=== PATIENT | female | born 1935 | race Caucasian/White ===

== ENCOUNTER 2017-03-09 15:53 | Inpatient (IN) | payer MEDICARE, BC ==
[2017-03-09 19:42] VITALS: BMI 35.7
[2017-03-10] MEDS ORDERED: Alum-Mag Hydrox-Simethicone Susp (30 mL) PO PRN (10:26)
--- NOTE | 2017-03-10 11:08 | CP.PCM.HP ---
History of Present Illness - History of Present Illness History of Present Illness: This is an 81 year old female with a past medical hx of essential hypertension, hypercholesterolemia, osteoporosis, dementia, atrial fibrillation, off of anticoagulation other than aspirin and plavix due to history of recurrent falls , with recent concern for GI bleed however w/ negative colonoscopy. The patient is a resident of the [facility]. She has history of advanced dementia and there is limited history available from her. 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 The patient has no complaints upon admission and says that she feels well. Denies cp/sob/f/c/n/v/d. Present on Admission - Present on Admission Any Indicators Present on Admission: No Review of Systems - Review of Systems Review of Systems: A 12 point review of systems was conducted and found to be negative other than what was mentioned in the history of present illness. Past Patient History - Past Medical History & Family History Past Medical History?: Yes - Past Social History Smoking Status: Former Smoker Home Situation {Lives}: Shelter - CARDIAC Hx Cardiac Disorders: Yes (A FIB, CARDIAC ARRHYTHMIA) Hx Hypercholesterolemia: Yes Hx Hypertension: Yes - PULMONARY Hx Respiratory Disorders: No - NEUROLOGICAL Hx Dementia: Yes - HEENT Hx HEENT Problems: Yes - RENAL Hx Chronic Kidney Disease: No - ENDOCRINE/METABOLIC Hx Endocrine Disorders: No - HEMATOLOGICAL/ONCOLOGICAL Hx Anemia: Yes - INTEGUMENTARY Hx Dermatological Problems: No - MUSCULOSKELETAL/RHEUMATOLOGICAL Hx Arthritis: Yes - GASTROINTESTINAL Hx Gastrointestinal Disorders: Yes Other/Comment: GI blood - GENITOURINARY/GYNECOLOGICAL Hx Genitourinary Disorders: No - PSYCHIATRIC Hx Substance Use: No - SURGICAL HISTORY Hx Surgeries: Yes Hx Joint Replacement: Yes (right knee) - ANESTHESIA Hx Anesthesia: Yes Hx Anesthesia Reactions: No Meds Allergies/Adverse Reactions: Allergies Allergy/AdvReac Type Severity Reaction Status Date / Time No Known Allergies Allergy Verified 03/09/17 19:41 Physical Exam - Additional Findings Additional findings: Physical exam: Constitutional- cooperative, awake, alert Head- NCAT, PERRL Eye- PERRL, EOMI ENT- normal exam, MMM. Neck- normal inspection, supple, no JVD Respiratory- CTAB, no wheezes rales rhonchi Cardiovascular- RRR, +S1, +S2 no MRG GI/Abdominal- normal bowel sounds, soft, no mass, no hsm Skin- warm, dry Extremities Exam- normal capillary refill, normal inspection Neurological Exam- alert, awake, oriented x 2. Right eye medial upper visual field deficit. L eye lateral visual field deficit. No facial droop observed. 5/ 5 muscle strength x 4 extremities. Sensation to light touch intact to all 4 extremities. Gait exam not performed. Psych- normal mood, normal affect Assessment & Plan - Assessment and Plan (Free Text) Plan: 81 yo female admitted to acute rehab s/p right PICA CVA 1) Right PICA CVA - Admit to [facility] - Physiatry consultation w/ Dr. Strauss - Start PT/OT/ST - Continuie ASA/Plavix - Restart further low dose anticoagulation on 03/23/2016 if medically stable and has strict fall precautions as per Dr. Marquez. 2) Atrial fibrillation - Off of full anticoagulation due to recurrent falls - Cont ASA/Plavix - Lopressor 50 mg po q 12 hours for rate control - Was seen at [facility] for cardiology consultation w/ Dr. Kirby 3) Essential hypertension - Continue Lopressor - May need to add additional medications if uncontrolled 4) Hypercholesterolemia - Continue Lipitor 20 mg po HS 5) Hx UTI dx at [facility] - Continue Cipro 250 mg po q 12 hours - Cipro to be completed on 03/16/2017 6) Advanced dementia - Continue Aricept - Fall precautions 7) DVT prophylaxis - Plavix/ASA only as above - ANDRES hose/stockings Disposition: To be discharged back to the [facility] upon completion of her treatment.
--- NOTE | 2017-03-10 12:45 | CP.PCM.PN ---
Subjective - Date & Time of Evaluation Date of Evaluation: 03/10/17 Time of Evaluation: 11:30 - Subjective Subjective: no acute complaints at present, Objective - Vital Signs/Intake and Output Vital Signs (last 24 hours): Temp Pulse Resp BP Pulse Ox 97.2 F L 90 18 163/105 H 94 L 03/10/17 08:02 03/10/17 08:25 03/10/17 08:02 03/10/17 08:25 03/10/17 08:21 - Medications Medications: Current Medications Al Hydrox/Mg Hydrox/Simethicone (Maalox Plus 30 Ml) 30 ml PO Q6 PRN PRN Reason: Indigestion / Heartburn Atorvastatin Calcium (Lipitor) 20 mg PO [facility] Last Admin: 03/09/17 21:53 Dose: 20 mg Ciprofloxacin (Cipro) 250 mg PO Q12 [facility] PRN Reason: Protocol Last Admin: 03/10/17 08:25 Dose: 250 mg Clopidogrel Bisulfate (Plavix) 75 mg PO DAILY [facility] Last Admin: 03/10/17 08:27 Dose: 75 mg Docusate Sodium (Colace) 100 mg PO BID [facility] Last Admin: 03/10/17 08:24 Dose: 100 mg Donepezil HCl (Aricept) 5 mg PO [facility] Last Admin: 03/09/17 21:53 Dose: 5 mg Ferrous Sulfate (Feosol) 325 mg PO DAILY [facility] Last Admin: 03/10/17 08:26 Dose: 325 mg Heparin Sodium (Porcine) (Heparin) 5,000 units SC Q8 [facility] PRN Reason: Protocol Last Admin: 03/10/17 05:54 Dose: 5,000 units Metoprolol Tartrate (Lopressor) 50 mg PO Q12 [facility] Last Admin: 03/10/17 08:25 Dose: 50 mg - Head Exam Head Exam: ATRAUMATIC, NORMAL INSPECTION, NORMOCEPHALIC - Eye Exam Eye Exam: EOMI, Normal appearance, PERRL Pupil Exam: NORMAL ACCOMODATION - ENT Exam ENT Exam: Mucous Membranes Moist, Normal Exam - Neck Exam Neck Exam: Normal Inspection - Respiratory Exam Respiratory Exam: Clear to Ausculation Bilateral, NORMAL BREATHING PATTERN - Cardiovascular Exam Cardiovascular Exam: REGULAR RHYTHM - GI/Abdominal Exam GI & Abdominal Exam: Soft, Normal Bowel Sounds - Rectal Exam Rectal Exam: NORMAL INSPECTION - Exam External exam: NORMAL EXTERNAL EXAM - Extremities Exam Extremities Exam: Full ROM, Normal Capillary Refill, Normal Inspection - Back Exam Back Exam: NORMAL INSPECTION - Neurological Exam Neurological Exam: Alert, Awake Neuro motor strength exam: Left Upper Extremity: 3, Right Upper Extremity: 3, Left Lower Extremity: 3, Right Lower Extremity: 3 - Psychiatric Exam Psychiatric exam: Normal Affect, Normal Mood - Skin Skin Exam: Dry, Intact Assessment and Plan (1) Anemia Status: Acute (2) Atrial fibrillation Status: Acute (3) CVA (cerebral vascular accident) Assessment & Plan: plan for physical, occupational, rec therapy program Status: Acute (4) Colon polyps Status: Acute (5) Diverticulosis Status: Acute (6) Gastrointestinal hemorrhage Status: Acute (7) HTN (hypertension) Status: Acute (8) Hemianopsia Status: Acute
--- NOTE | 2017-03-10 12:46 | PCM.OPOC ---
Physiatry Overall Plan of Care - Overall Plan of Care Estimated Length of Stay in Weeks: 3 Rehab Impairment: Mobility, Gait, Cognition, Speech, Balance, Coordination Etiologic Diagnosis: Cerebrovascular Accident Rehab/Medical Prognosis: Fair - Anticipated Interventions Physical Therapy:: Yes Occupational Therapy:: Yes Speech Therapy:: Yes Recreational Therapy:: Yes - Therapy Goals Bed Mobility: Independent Ambulation: Supervision Functional Positional Changes:: Independent - Discharge Plan Identification of Barriers to Discharge: Home Situation Discharge Destination: Home
--- NOTE | 2017-03-10 12:49 | CP.PCM.CON ---
History of Present Illness - History of Present Illness History of Present Illness: 81 year old freindly female admitted to acute raheb with diagnosis of acute CVa, complaints of visual disturbances Review of Systems - EENT Eyes: Other Visual Disturbances - Neurological Neurological: Weakness Past Patient History - Past Medical History & Family History Past Medical History?: Yes - Past Social History Smoking Status: Former Smoker Home Situation {Lives}: Jail - CARDIAC Hx Cardiac Disorders: Yes (A FIB, CARDIAC ARRHYTHMIA) Hx Hypercholesterolemia: Yes Hx Hypertension: Yes - PULMONARY Hx Respiratory Disorders: No - NEUROLOGICAL Hx Dementia: Yes - HEENT Hx HEENT Problems: Yes - RENAL Hx Chronic Kidney Disease: No - ENDOCRINE/METABOLIC Hx Endocrine Disorders: No - HEMATOLOGICAL/ONCOLOGICAL Hx Anemia: Yes - INTEGUMENTARY Hx Dermatological Problems: No - MUSCULOSKELETAL/RHEUMATOLOGICAL Hx Arthritis: Yes - GASTROINTESTINAL Hx Gastrointestinal Disorders: Yes Other/Comment: GI blood - GENITOURINARY/GYNECOLOGICAL Hx Genitourinary Disorders: No - PSYCHIATRIC Hx Substance Use: No - SURGICAL HISTORY Hx Surgeries: Yes Hx Joint Replacement: Yes (right knee) - ANESTHESIA Hx Anesthesia: Yes Hx Anesthesia Reactions: No Meds Allergies/Adverse Reactions: Allergies Allergy/AdvReac Type Severity Reaction Status Date / Time No Known Allergies Allergy Verified 03/09/17 19:41 - Medications Medications: Current Medications Al Hydrox/Mg Hydrox/Simethicone (Maalox Plus 30 Ml) 30 ml PO Q6 PRN PRN Reason: Indigestion / Heartburn Atorvastatin Calcium (Lipitor) 20 mg PO HS [facility] Last Admin: 03/09/17 21:53 Dose: 20 mg Ciprofloxacin (Cipro) 250 mg PO Q12 [facility] PRN Reason: Protocol Last Admin: 03/10/17 08:25 Dose: 250 mg Clopidogrel Bisulfate (Plavix) 75 mg PO DAILY [facility] Last Admin: 03/10/17 08:27 Dose: 75 mg Docusate Sodium (Colace) 100 mg PO BID [facility] Last Admin: 03/10/17 08:24 Dose: 100 mg Donepezil HCl (Aricept) 5 mg PO HS [facility] Last Admin: 03/09/17 21:53 Dose: 5 mg Ferrous Sulfate (Feosol) 325 mg PO DAILY [facility] Last Admin: 03/10/17 08:26 Dose: 325 mg Heparin Sodium (Porcine) (Heparin) 5,000 units SC Q8 [facility] PRN Reason: Protocol Last Admin: 03/10/17 05:54 Dose: 5,000 units Metoprolol Tartrate (Lopressor) 50 mg PO Q12 [facility] Last Admin: 03/10/17 08:25 Dose: 50 mg Physical Exam - Head Exam Head Exam: ATRAUMATIC, NORMAL INSPECTION, NORMOCEPHALIC - Eye Exam Eye Exam: EOMI, Normal appearance, PERRL Pupil Exam: NORMAL ACCOMODATION - ENT Exam ENT Exam: Mucous Membranes Moist, Normal Exam - Neck Exam Neck exam: Positive for: Normal Inspection - Respiratory Exam Respiratory Exam: Clear to Auscultation Bilateral, NORMAL BREATHING PATTERN - Cardiovascular Exam Cardiovascular Exam: REGULAR RHYTHM - GI/Abdominal Exam GI & Abdominal Exam: Normal Bowel Sounds - Rectal Exam Rectal Exam: NORMAL INSPECTION - Exam External exam: NORMAL EXTERNAL EXAM - Extremities Exam Extremities exam: Positive for: normal inspection Additional comments: muscle strength 4/5 ,sensation grossly intact problems with balance and coordination - Back Exam Back exam: NORMAL INSPECTION - Neurological Exam Neurological exam: Alert, Reflexes Normal - Psychiatric Exam Psychiatric exam: Normal Mood Additional comments: confused - Skin Skin Exam: Dry, Intact Results - Vital Signs Recent Vital Signs: Last Vital Signs Temp 97.2 F L 03/10/17 08:02 Pulse 90 03/10/17 08:25 Resp 18 03/10/17 08:02 BP 163/105 H 03/10/17 08:25 Pulse Ox 94 L 03/10/17 08:21 Assessment & Plan (1) Anemia Status: Acute (2) Atrial fibrillation Status: Acute (3) CVA (cerebral vascular accident) Assessment and Plan: plan for physical, occuaptional, rec and speech therapy program covering for Dr collins Status: Acute (4) Colon polyps Status: Acute (5) Diverticulosis Status: Acute (6) Gastrointestinal hemorrhage Status: Acute (7) HTN (hypertension) Status: Acute (8) Hemianopsia Status: Acute
[2017-03-12] MEDS: Pantoprazole 40 mg EC Tab PO SCH (08:51)
--- NOTE | 2017-03-12 10:25 | CP.PCM.PN ---
Subjective - Date & Time of Evaluation Date of Evaluation: 03/12/17 Time of Evaluation: 10:25 - Subjective Subjective: patient seen examined bedside, doing well no complaints, tolerating PT well HD stable NAD no cp sob calf tenderness Objective - Vital Signs/Intake and Output Vital Signs (last 24 hours): Temp Pulse Resp BP Pulse Ox 98.2 F 95 H 21 169/97 H 95 03/12/17 08:36 03/12/17 08:51 03/12/17 08:36 03/12/17 08:51 03/12/17 08:36 Head- NCAT, PERRL Eye- PERRL, normal accommodation ENT- normal exam, MMM. Neck- normal inspection, supple, no JVD Respiratory- CTAB, no wheezes rales rhonchi Cardiovascular- RRR, +S1, +S2 no MRG GI/Abdominal- normal bowel sounds, soft Skin- warm, dry Extremities Exam- normal capillary refill, normal inspection Neurological Exam- alert, oriented Psych- normal mood, normal affect - Medications Medications: Current Medications Al Hydrox/Mg Hydrox/Simethicone (Maalox Plus 30 Ml) 30 ml PO Q6 PRN PRN Reason: Indigestion / Heartburn Atorvastatin Calcium (Lipitor) 20 mg PO HS [facility] Last Admin: 03/11/17 21:28 Dose: 20 mg Ciprofloxacin (Cipro) 250 mg PO Q12 [facility] PRN Reason: Protocol Last Admin: 03/12/17 08:49 Dose: 250 mg Clopidogrel Bisulfate (Plavix) 75 mg PO DAILY [facility] Last Admin: 03/12/17 08:50 Dose: 75 mg Docusate Sodium (Colace) 100 mg PO BID [facility] Last Admin: 03/12/17 08:50 Dose: 100 mg Donepezil HCl (Aricept) 5 mg PO HS [facility] Last Admin: 03/11/17 21:28 Dose: 5 mg Ferrous Sulfate (Feosol) 325 mg PO DAILY [facility] Last Admin: 03/12/17 08:50 Dose: 325 mg Heparin Sodium (Porcine) (Heparin) 5,000 units SC Q8 [facility] PRN Reason: Protocol Last Admin: 03/12/17 05:26 Dose: 5,000 units Metoprolol Tartrate (Lopressor) 50 mg PO Q12 [facility] Last Admin: 03/12/17 08:51 Dose: 50 mg Pantoprazole Sodium (Protonix Ec Tab) 40 mg PO DAILY [facility] Last Admin: 03/12/17 08:51 Dose: 40 mg Assessment and Plan - Assessment and Plan (Free Text) Plan: This is an 81 year old female with a past medical hx of essential hypertension, hypercholesterolemia, osteoporosis, dementia, atrial fibrillation, off of anticoagulation other than aspirin and plavix due to history of recurrent falls , with recent concern for GI bleed however w/ negative colonoscopy. The patient is a resident of the [facility]. She has history of advanced dementia and there is limited history available from her. 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 The patient has no complaints upon admission and says that she feels well. Denies cp/sob/f/c/n/v/d. 1) Right PICA CVA - Admit to [facility] - Physiatry consultation w/ Dr. Strauss - Start PT/OT/ST - Continuie ASA/Plavix - Restart further low dose anticoagulation on 03/23/2016 if medically stable and has strict fall precautions as per Dr. Marquez. 2) Atrial fibrillation - Off of full anticoagulation due to recurrent falls - Cont ASA/Plavix - Lopressor 50 mg po q 12 hours for rate control - Was seen at [facility] for cardiology consultation w/ Dr. Kirby 3) Essential hypertension - Continue Lopressor - May need to add additional medications if uncontrolled 4) Hypercholesterolemia - Continue Lipitor 20 mg po HS 5) Hx UTI dx at [facility] - Continue Cipro 250 mg po q 12 hours - Cipro to be completed on 03/16/2017 6) Advanced dementia - Continue Aricept - Fall precautions 7) DVT prophylaxis - Plavix/ASA only as above - ANDRES hose/stockings Disposition: To be discharged back to the [facility] upon completion of her treatment.
--- NOTE | 2017-03-12 12:35 | CP.PCM.PN ---
Subjective - Date & Time of Evaluation Date of Evaluation: 03/12/17 Time of Evaluation: 12:35 - Subjective Subjective: Ms. Carrero was seen and examined at the bedside. She is alert, oriented to person, but with some confusion to time (2019), and place (knows that she is in a hospital, but unaware of which one). She denies any headache, dizziness, lightheadedness, nausea, or vomiting. She is able to answer few questions with appropriately and follow simple commands. She is on telesitter for patient safety. Objective - Vital Signs/Intake and Output Vital Signs (last 24 hours): Temp Pulse Resp BP Pulse Ox 98.2 F 95 H 21 169/97 H 95 03/12/17 08:36 03/12/17 08:51 03/12/17 08:36 03/12/17 08:51 03/12/17 08:36 - Medications Medications: Current Medications Al Hydrox/Mg Hydrox/Simethicone (Maalox Plus 30 Ml) 30 ml PO Q6 PRN PRN Reason: Indigestion / Heartburn Atorvastatin Calcium (Lipitor) 20 mg PO HS [facility] Last Admin: 03/11/17 21:28 Dose: 20 mg Ciprofloxacin (Cipro) 250 mg PO Q12 [facility] PRN Reason: Protocol Last Admin: 03/12/17 08:49 Dose: 250 mg Clopidogrel Bisulfate (Plavix) 75 mg PO DAILY [facility] Last Admin: 03/12/17 08:50 Dose: 75 mg Docusate Sodium (Colace) 100 mg PO BID [facility] Last Admin: 03/12/17 08:50 Dose: 100 mg Donepezil HCl (Aricept) 5 mg PO HS [facility] Last Admin: 03/11/17 21:28 Dose: 5 mg Ferrous Sulfate (Feosol) 325 mg PO DAILY [facility] Last Admin: 03/12/17 08:50 Dose: 325 mg Heparin Sodium (Porcine) (Heparin) 5,000 units SC Q8 [facility] PRN Reason: Protocol Last Admin: 03/12/17 05:26 Dose: 5,000 units Metoprolol Tartrate (Lopressor) 50 mg PO Q12 [facility] Last Admin: 03/12/17 08:51 Dose: 50 mg Pantoprazole Sodium (Protonix Ec Tab) 40 mg PO DAILY [facility] Last Admin: 03/12/17 08:51 Dose: 40 mg - Constitutional Appears: No Acute Distress - Head Exam Head Exam: NORMAL INSPECTION - Neurological Exam Neurological Exam: Alert, Awake Neuro motor strength exam: Left Upper Extremity: 5, Right Upper Extremity: 5, Left Lower Extremity: 5, Right Lower Extremity: 5 Additional comments: alert, awake, oriented x 2. Right eye medial upper visual field deficit. L eye lateral visual field deficit. No facial droop observed. 07/07 muscle Assessment and Plan (1) CVA (cerebral vascular accident) Assessment & Plan: Case discussed with Dr. Christian, continue all current medical, physical, occupational, and speech therapies. There is no new recommendations from neurology. Status: Acute
[2017-03-13] MEDS: Pantoprazole 40 mg EC Tab PO SCH (08:10)
--- NOTE | 2017-03-13 08:50 | PSY.TMCNF ---
Nursing - Vital Signs Vital Signs (Last 8 hours): Vital Signs 03/13/17 03/13/17 07:13 08:09 Temperature 97 F L Pulse Rate 94 H 91 H Respiratory 20 Rate Blood Pressure 137/87 152/69 H - Precautions: Precautions: Fall Prevention - Medications/Other Issues Comment: (+) Poor Vision. - Repeat CT Scan done yesterday. - Consults Comment: Dr. Gómez, Dr. Christian - Toileting Toileting: Supervision - Bladder Management Bladder Pattern: Normal Voiding Method: Toilet, Bedpan Bladder Management: Supervision Frequency of Accidents: 0 - Bowel Management Bowel Pattern: Normal Bowel Management: Supervision Frequency of Accidents: 0 - Transfers Transfers: Supervision - ADL's ADL's: Minimal Assistance - Patient/Family Teaching Comments: Care post CVA and safety precautions - Goals/Time Frame Comments: Per multidisciplinary care plan and goals - Provider Provider: Kisha HERNANDEZN RN CRRN Physical Therapy - Bed Mobility Bed Mobility: Verbal Cues, Minimal Assistance - Transfers Wheelchair to Mat: Verbal Cues, Minimal Assistance Sit to Stand: Verbal Cues, Contact Guard, Minimal Assistance - Ambulation Level of Assistance: Verbal Cues, Minimal Assistance Distance (ft.): 100 Assistive Devices: Rolling Walker - Stair Negotiation Stairs: Level of Assistance: Minimal Assistance Number of Stairs: 3 Handrails: Bilateral Stairs: Assistive Devices: Left Handrail, Right Handrail - Standing Balance Static Stand: Contact Guard Assist Dynamic Stand: Minimal Assistance - Pain Pain (assessed during therapy session): 0 - Insight/Carryover Insight/Carryover: Fair - Patient/Family Education Comment: Patient benefits from consistent verbal cues for safety awareness and pt demos poor cognition. - Assessment/Plan Assessment: Patient is 81 yo female who presents to acute rehab at [facility] s/p acute CVA. Patient was residing in a long term setting and was modified I at baseline. 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 Pt benefits from consistent verbal cues for safety due to poor carryover. Cont OT services 5-6x/ week to return pt to her PLOF. - Goals Timeframe: 2 weeks Goals: Return to PLOF. Mod I with self care ,transfers and mobility in long term setting. - Provider Therapist: Rajwinder Buckley PT DPT License Number: [id number] Occupational Therapy - Arousal/Attention/Orientation Level of Consciousness: Awake, Alert, Forgetful, Confused Patient Orientation: Person Assessment Comment: Patient is pleasantly confused. She is oriented to her name and month but not place or year . - ADL/IADL Self Feeding: Set-up Help Grooming: Set-up Help Bathing-Upper Extremity: Supervision, Verbal Cues Bathing-Lower Extremity: Verbal Cues, Set-up Help, Contact Guard Dressing-Upper Extremity: Supervision Dressing-Lower Extremity: Verbal Cues, Set-up Help, Contact Guard Homemaking: Not Applicable - Sitting Balance Static Sitting: Independent without upper extremity support Dynamic Sitting: Reaches across midline, Reaches out of base of support, Requires supervision - Transfers Wheelchair to Bed Transfers: Contact Guard Toilet Transfers: Contact Guard - Wheelchair Management Level of Assistance: Verbal Cues, Minimal Assistance - Upper Extremity Status Right Upper Extremity Comment: WFL Left Upper Extremity Comment: WFL - Pain Pain (assessed during therapy session): 0 - Insight/Carryover Insight/Carryover: Fair - Patient/Family Education Comment: Patient benefits from consistent verbal cues for safety awareness and pt demos poor cognition. - Assessment/Plan Assessment: Patient is 81 yo female who presents to acute rehab at [facility] acute CVA. Patient was residing in a long term setting and was modified I at baseline. 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 Pt benefits from consistent verbal cues for safety due to poor carryover. Cont OT services 5-6x/ week to return pt to her PLOF. - Goals Timeframe: 2 weeks Goals: Return to PLOF. Mod I with self care ,transfers and mobility in long term setting. - Provider Therapist: JIMMY Farris/Kay License Number: [id number] Speech Therapy - Plan Assessment: Patient is 81 yo female who presents to acute rehab at [facility] acute CVA. Patient was residing in a long term setting and was modified I at baseline. 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 Pt benefits from consistent verbal cues for safety due to poor carryover. Cont OT services 5-6x/ week to return pt to her PLOF. Recreational Therapy - Participation Participation: Participates in Individual and/or Group Sessions - Activities Leisure Activities: Television - Socialization Level of Socialization: Initiates/interacts freely with care givers and peer - Diversional Time Diversional Time: television, movies - Assessment Assessment/Plan: Patient is 81 yo female who presents to acute rehab at [facility] s/ p acute CVA. Patient was residing in a long term setting and was modified I at baseline. 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 Pt benefits from consistent verbal cues for safety due to poor carryover. Cont OT services 5-6x/ week to return pt to her PLOF. - Provider Therapist: Anju Huntley, DYE MAKER #[id number] Nutrition - Current Diet Current Diet/ Supplement/ Feedings: Heart healthy diet - Appetite Percent Meal Consumed: 50-74% - Comments Comments: Care post CVA and safety precautions - Assessment/Goals/Time Frame Assessment/Goals/Time Frame: (+) Poor Vision. - Repeat CT Scan done yesterday. - Provider Provider: Vani Beltrán RD Case Management - Discharge Plan Discharge Plan: exterminator helper care (on dementia unit at the [facility] and will return) Rehabilitation Plan - Treatment Plan Treatment Plan: Physical Therapy, Occupational Therapy, Patient/Family Education - Discharge Plan Estimated Date of Discharge: 03/22/17 [facility] to[facility]
--- NOTE | 2017-03-13 09:43 | CP.PCM.PN ---
Subjective - Date & Time of Evaluation Date of Evaluation: 03/13/17 Time of Evaluation: 09:42 - Subjective Subjective: Patient seen and denies sob/cp feels that she is doing ok and offers no special requests for treatment she has been participating and remains motivated but does need cues for most tasks at this current time Objective - Vital Signs/Intake and Output Vital Signs (last 24 hours): Temp Pulse Resp BP Pulse Ox 97.0 F L 91 H 19 151/69 H 96 03/13/17 08:45 03/13/17 08:45 03/13/17 08:45 03/13/17 08:45 03/13/17 08:45 - Medications Medications: Current Medications Al Hydrox/Mg Hydrox/Simethicone (Maalox Plus 30 Ml) 30 ml PO Q6 PRN PRN Reason: Indigestion / Heartburn Atorvastatin Calcium (Lipitor) 20 mg PO HS [facility] Last Admin: 03/12/17 21:18 Dose: 20 mg Ciprofloxacin (Cipro) 250 mg PO Q12 [facility] PRN Reason: Protocol Last Admin: 03/13/17 08:10 Dose: 250 mg Clopidogrel Bisulfate (Plavix) 75 mg PO DAILY [facility] Last Admin: 03/13/17 08:10 Dose: 75 mg Docusate Sodium (Colace) 100 mg PO BID [facility] Last Admin: 03/13/17 08:10 Dose: 100 mg Donepezil HCl (Aricept) 5 mg PO HS [facility] Last Admin: 03/12/17 21:18 Dose: 5 mg Ferrous Sulfate (Feosol) 325 mg PO DAILY [facility] Last Admin: 03/13/17 08:10 Dose: 325 mg Heparin Sodium (Porcine) (Heparin) 5,000 units SC Q8 [facility] PRN Reason: Protocol Last Admin: 03/13/17 06:29 Dose: 5,000 units Metoprolol Tartrate (Lopressor) 50 mg PO Q12 [facility] Last Admin: 03/13/17 08:09 Dose: 50 mg Pantoprazole Sodium (Protonix Ec Tab) 40 mg PO DAILY [facility] Last Admin: 03/13/17 08:10 Dose: 40 mg
--- NOTE | 2017-03-13 10:52 | CT ---
PROCEDURE: CT HEAD WITHOUT CONTRAST. HISTORY: Acute CVA COMPARISON: None available. TECHNIQUE: Axial computed tomography images were obtained through the head/brain without intravenous contrast. Radiation dose: Total exam DLP = 929.45 mGy-cm. This CT exam was performed using one or more of the following dose reduction techniques: Automated exposure control, adjustment of the mA and/or kV according to patient size, and/or use of iterative reconstruction technique. FINDINGS: HEMORRHAGE: No intracranial hemorrhage. BRAIN: There is a large subacute infarction in the right occipital lobe. Interspersed gyral areas of increased attenuation could represent petechial hemorrhage. Also noted is ill-defined low-attenuation in bilateral basal ganglia thalami midbrain and samantha. There are severe chronic microangiopathic changes. There is cystic encephalomalacia in the right frontal lobe. There is no mass, mass effect or abnormal extra-axial fluid collection. VENTRICLES: There is mild age-related global parenchymal volume loss and proportionate enlargement of the ventricles and cortical sulci CALVARIUM: The skull base and calvarium are normal. PARANASAL SINUSES: Predominantly clear. MASTOID AIR CELLS: Predominantly clear. OTHER FINDINGS: None. IMPRESSION: 1. Large subacute infarction with question of petechial hemorrhage in the right CO FOUNDER territory involving the entire right occipital lobe. 2. Abnormal low density in bilateral basal ganglia, thalami, midbrain and samantha could also represent acute/subacute infarction in the setting of prolonged anoxia/hypoperfusion. 3. Cystic encephalomalacia in the right frontal lobe, sequela of remote MCA territory infarction. 4. Severe chronic microangiopathic changes and mild age-related global parenchymal volume loss. An MRI of the brain without intravenous contrast is recommended for further characterization of these findings. Critical findings were discussed with Dr. Kirti Issa on 03/13/2017 at 10:25 a.m.
--- NOTE | 2017-03-13 11:41 | CP.PCM.CON ---
History of Present Illness - History of Present Illness History of Present Illness: 81 yr old right handed woman with pmh of hypertension, hypercholesterolemia , osteoporosis, dementia, afib, off anticoagulation due to recent falls, with concern for GI bleed, and resident of [facility]. 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 We were called to examine and evaluate the patietn who started to demonstrate symptoms of change in mental status over the last several days. She appeared to be confused on examination and CT scan of the head was ordered, with no change in her Right PICA stroke. There was no acute hemorrhage or new strokes noted. ON examination, the patients exam does not appear to have changed from admission. Review of Systems - Review of Systems Systems not reviewed;Unavailable: Altered Mental Status - EENT Eyes: Diplopia - Neurological Neurological: Abnormal Gait, Abnormal Hearing, Behavioral Changes, Confusion, Disequilibrium, Dizziness Past Patient History - Tetanus Immunizations Tetanus Immunization: Unknown - Past Medical History & Family History Past Medical History?: Yes Past Family History: Reviewed and not pertinent - Past Social History Smoking Status: Former Smoker Home Situation {Lives}: Retirement - CARDIAC Hx Cardiac Disorders: Yes Hx Hypercholesterolemia: Yes Hx Hypertension: Yes - PULMONARY Hx Respiratory Disorders: No - NEUROLOGICAL Hx Dementia: Yes - HEENT Hx HEENT Problems: Yes - RENAL Hx Chronic Kidney Disease: No - ENDOCRINE/METABOLIC Hx Endocrine Disorders: No - HEMATOLOGICAL/ONCOLOGICAL Hx Anemia: Yes - INTEGUMENTARY Hx Dermatological Problems: No - MUSCULOSKELETAL/RHEUMATOLOGICAL Hx Arthritis: Yes - GASTROINTESTINAL Hx Gastrointestinal Disorders: Yes Other/Comment: GI blood - GENITOURINARY/GYNECOLOGICAL Hx Genitourinary Disorders: No - PSYCHIATRIC Hx Substance Use: No - SURGICAL HISTORY Hx Surgeries: Yes Hx Joint Replacement: Yes (right knee) - ANESTHESIA Hx Anesthesia: Yes Hx Anesthesia Reactions: No Meds Allergies/Adverse Reactions: Allergies Allergy/AdvReac Type Severity Reaction Status Date / Time No Known Allergies Allergy Verified 03/09/17 19:41 - Medications Medications: Current Medications Al Hydrox/Mg Hydrox/Simethicone (Maalox Plus 30 Ml) 30 ml PO Q6 PRN PRN Reason: Indigestion / Heartburn Atorvastatin Calcium (Lipitor) 20 mg PO HS [facility] Last Admin: 03/12/17 21:18 Dose: 20 mg Ciprofloxacin (Cipro) 250 mg PO Q12 [facility] PRN Reason: Protocol Last Admin: 03/13/17 08:10 Dose: 250 mg Clopidogrel Bisulfate (Plavix) 75 mg PO DAILY [facility] Last Admin: 03/13/17 08:10 Dose: 75 mg Docusate Sodium (Colace) 100 mg PO BID [facility] Last Admin: 03/13/17 08:10 Dose: 100 mg Donepezil HCl (Aricept) 5 mg PO HS [facility] Last Admin: 03/12/17 21:18 Dose: 5 mg Ferrous Sulfate (Feosol) 325 mg PO DAILY [facility] Last Admin: 03/13/17 08:10 Dose: 325 mg Heparin Sodium (Porcine) (Heparin) 5,000 units SC Q8 [facility] PRN Reason: Protocol Last Admin: 03/13/17 06:29 Dose: 5,000 units Metoprolol Tartrate (Lopressor) 50 mg PO Q12 [facility] Last Admin: 03/13/17 08:09 Dose: 50 mg Pantoprazole Sodium (Protonix Ec Tab) 40 mg PO DAILY [facility] Last Admin: 03/13/17 08:10 Dose: 40 mg Physical Exam - Constitutional Appears: Confused - Head Exam Head Exam: ATRAUMATIC - Eye Exam Eye Exam: EOMI - Neck Exam Neck exam: Positive for: Full Rom - Cardiovascular Exam Cardiovascular Exam: Irregular Rhythm, REGULAR RHYTHM - Neurological Exam Neurological exam: CN II-XII Intact, Reflexes Normal Results - Vital Signs Recent Vital Signs: Last Vital Signs Temp 97.0 F L 03/13/17 08:45 Pulse 91 H 03/13/17 08:45 Resp 19 03/13/17 08:45 BP 151/69 H 03/13/17 08:45 Pulse Ox 96 03/13/17 08:45 - Imaging and Cardiology CT scan - head Status: Report reviewed by me (Subacute infarct in the Right IDENTIFICATION TECHNICIAN ) Assessment & Plan - Assessment and Plan (Free Text) Assessment: 81 yr old woman with unchanged Right IDENTIFICATION TECHNICIAN stroke, but nonetheless has some new subjective confusion. On exam, I was not able to elicit any new focal deficits. However, we will order MRI Brain and add extra aspirin one time dose to evaluate. If MRI is normal, we will also order EEg.
[2017-03-13] MEDS: Sodium Chloride 0.9% 1,000 ML IV SCH ×2 (12:24→22:23)
--- NOTE | 2017-03-13 18:02 | MRI ---
PROCEDURE: MRI BRAIN WITHOUT CONTRAST HISTORY: Acute CVA COMPARISON: Noncontrast head CT performed earlier the same day TECHNIQUE: Multiplanar, multisequence MR images of the brain were obtained without intravenous contrast enhancement. FINDINGS: HEMORRHAGE: None DWI: There is a large late subacute infarction in the right occipital lobe and involving the right posterior temporal lobe with associated gyral T1 hyperintensity which corresponds to increased susceptibility on gradient images. BRAIN PARENCHYMA: There is symmetric T1 hypo intense and T2/FLAIR hyperintensity in the basal ganglia and thalami. There is an old infarction in the right frontal lobe. There are severe chronic microangiopathic changes. There are diffusely scattered punctate foci of increased magnetic susceptibility in the cerebral and cerebellar hemispheres and bilateral basal ganglia and thalami, worse on the right. The midline sagittal structures are normal. VENTRICLES: There is mild age-related global parenchymal volume loss and proportionate enlargement of the ventricles and cortical sulci. CRANIUM: There is normal bone marrow signal pattern. ORBITS: Grossly unremarkable. PARANASAL SINUSES/MASTOIDS: Predominantly clear. VASCULAR SYSTEM: There are normal signal voids in the larger intracranial arteries. OTHER FINDINGS: None. IMPRESSION: 1. Large subacute infarction with hemorrhagic transformation in the right occipital lobe involving the DATA COLLECTION SPECIALIST territory. 2. Symmetric abnormalities in bilateral basal ganglia and thalami. The differential considerations include extra pontine myelinolysis, hypoglycemia, edema amongst others. Follow-up is advised. 3. Old infarction in the right frontal lobe involving the MCA territory. 4. Severe chronic microangiopathic changes and mild age-related global parenchymal volume loss. Diffuse old petechial supra and infratentorial hemorrhagic foci.
[2017-03-14] MEDS: Pantoprazole 40 mg EC Tab PO SCH (08:14)
[2017-03-14] MEDS ORDERED: Aspirin 325 mg EC Tablets PO SCH (09:00)
--- NOTE | 2017-03-14 10:47 | CP.PCM.PN ---
Subjective - Date & Time of Evaluation Date of Evaluation: 03/14/17 Time of Evaluation: 10:46 - Subjective Subjective: DOING WELL THIS AM TOLERATING THERAPIES WELL NO COMPLAINTS NO CP SOB CALF TENDERNESS HD STABLE NAD Objective - Vital Signs/Intake and Output Vital Signs (last 24 hours): Temp Pulse Resp BP Pulse Ox 97.9 F 83 21 141/98 H 96 03/14/17 08:25 03/14/17 08:25 03/14/17 08:25 03/14/17 08:25 03/14/17 08:25 Constitutional- cooperative, awake, alert. Head- NCAT, PERRL Eye- PERRL, normal accommodation ENT- normal exam, MMM. Neck- normal inspection, supple, no JVD Respiratory- CTAB, no wheezes rales rhonchi Cardiovascular- RRR, +S1, +S2 no MRG GI/Abdominal- normal bowel sounds, soft Skin- warm, dry Extremities Exam- normal capillary refill, normal inspection Neurological Exam- alert, oriented Psych- normal mood, normal affect - Medications Medications: Current Medications Al Hydrox/Mg Hydrox/Simethicone (Maalox Plus 30 Ml) 30 ml PO Q6 PRN PRN Reason: Indigestion / Heartburn Aspirin (Ecotrin) 325 mg PO DAILY [facility] Atorvastatin Calcium (Lipitor) 20 mg PO HS [facility] Last Admin: 03/13/17 21:02 Dose: 20 mg Ciprofloxacin (Cipro) 250 mg PO Q12 [facility] PRN Reason: Protocol Last Admin: 03/14/17 08:13 Dose: 250 mg Clopidogrel Bisulfate (Plavix) 75 mg PO DAILY [facility] Last Admin: 03/13/17 08:10 Dose: 75 mg Docusate Sodium (Colace) 100 mg PO BID [facility] Last Admin: 03/14/17 08:13 Dose: 100 mg Donepezil HCl (Aricept) 5 mg PO HS [facility] Last Admin: 03/13/17 22:24 Dose: 5 mg Ferrous Sulfate (Feosol) 325 mg PO DAILY [facility] Last Admin: 03/14/17 08:15 Dose: 325 mg Sodium Chloride (Sodium Chloride 0.9%) 1,000 mls @ 100 mls/hr IV .Q10H [facility] Stop: 03/14/17 11:27 Last Admin: 03/13/17 22:23 Dose: 100 mls/hr Metoprolol Tartrate (Lopressor) 50 mg PO Q12 [facility] Last Admin: 03/14/17 08:13 Dose: 50 mg Pantoprazole Sodium (Protonix Ec Tab) 40 mg PO DAILY [facility] Last Admin: 03/14/17 08:14 Dose: 40 mg Assessment and Plan - Assessment and Plan (Free Text) Plan: This is an 81 year old female with a past medical hx of essential hypertension, hypercholesterolemia, osteoporosis, dementia, atrial fibrillation, off of anticoagulation other than aspirin and plavix due to history of recurrent falls , with recent concern for GI bleed however w/ negative colonoscopy. The patient is a resident of the [facility]. She has history of advanced dementia and there is limited history available from her. She was brought to [facility] after being found to have Right PICA subacute infarction without hemorrhage at [facility]. The patient has no complaints upon admission and says that she feels well. Denies cp/sob/f/c/n/v/d. 1) Right PICA CVA - Admit to [facility] acute rehab - Physiatry consultation w/ Dr. Strauss - Start PT/OT/ST - Continue ASA/Plavix - Restart further low dose anticoagulation on 03/23/2016 if medically stable and has strict fall precautions per neuro - Neuro consult with Dr. Issa appreciated and followed: MRI and if neg, EEG. will continue ASA 2) Atrial fibrillation - Off of full anticoagulation due to recurrent falls - Cont ASA/Plavix - Lopressor 50 mg po q 12 hours for rate control - Was seen at [facility] for cardiology consultation w/ Dr. Kirby 3) Essential hypertension - Continue Lopressor - May need to add additional medications if uncontrolled 4) Hypercholesterolemia - Continue Lipitor 20 mg po HS 5) Hx UTI dx at [facility] - Continue Cipro 250 mg po q 12 hours - Cipro to be completed on 03/16/2017 6) Advanced dementia - Continue Aricept - Fall precautions 7) DVT prophylaxis - Plavix/ASA only as above - ANDRES hose/stockings Disposition: [facility] completion of [facility].
--- NOTE | 2017-03-14 11:27 | CP.PCM.PN ---
Subjective - Date & Time of Evaluation Date of Evaluation: 03/14/17 Time of Evaluation: 11:24 - Subjective Subjective: Mr. Carrero was seen and examined at the bedside. She is alert, oriented in all spheres. She is able to answer questions appropriately and follows simple commands. According to the staff, the patient gets episode of confusion especially at nighttime. She pulled her IV three times last night and IVF was discontinued. She remains on telesitter for patient safety. Objective - Vital Signs/Intake and Output Vital Signs (last 24 hours): Temp Pulse Resp BP Pulse Ox 97.9 F 83 21 141/98 H 96 03/14/17 08:25 03/14/17 08:25 03/14/17 08:25 03/14/17 08:25 03/14/17 08:25 - Medications Medications: Current Medications Al Hydrox/Mg Hydrox/Simethicone (Maalox Plus 30 Ml) 30 ml PO Q6 PRN PRN Reason: Indigestion / Heartburn Aspirin (Ecotrin) 325 mg PO DAILY [facility] Atorvastatin Calcium (Lipitor) 20 mg PO [facility] Last Admin: 03/13/17 21:02 Dose: 20 mg Ciprofloxacin (Cipro) 250 mg PO Q12 [facility] PRN Reason: Protocol Last Admin: 03/14/17 08:13 Dose: 250 mg Clopidogrel Bisulfate (Plavix) 75 mg PO DAILY [facility] Last Admin: 03/13/17 08:10 Dose: 75 mg Docusate Sodium (Colace) 100 mg PO BID [facility] Last Admin: 03/14/17 08:13 Dose: 100 mg Donepezil HCl (Aricept) 5 mg PO [facility] Last Admin: 03/13/17 22:24 Dose: 5 mg Ferrous Sulfate (Feosol) 325 mg PO DAILY [facility] Last Admin: 03/14/17 08:15 Dose: 325 mg Sodium Chloride (Sodium Chloride 0.9%) 1,000 mls @ 100 mls/hr IV .Q10H [facility] Stop: 03/14/17 11:27 Last Admin: 03/13/17 22:23 Dose: 100 mls/hr Metoprolol Tartrate (Lopressor) 50 mg PO Q12 [facility] Last Admin: 03/14/17 08:13 Dose: 50 mg Pantoprazole Sodium (Protonix Ec Tab) 40 mg PO DAILY [facility] Last Admin: 01/10/18 08:14 Dose: 40 mg - Constitutional Appears: No Acute Distress - Head Exam Head Exam: NORMAL INSPECTION - Neurological Exam Neurological Exam: Alert, Awake, Oriented x3 Neuro motor strength exam: Left Upper Extremity: 5, Right Upper Extremity: 4, Left Lower Extremity: 5, Right Lower Extremity: 4 Additional comments: Neurological improved from previous examination except with episode of confusion at nighttime. Assessment and Plan (1) CVA (cerebral vascular accident) Assessment & Plan: Case discussed with Dr. Issa, continue all current medical, physical, occupational, and speech therapies. Recommend Seroquel 25 mg PO at bedtime. Id patient mental status to repeat, CT of the head stat. Status: Acute
[2017-03-15] MEDS: Pantoprazole 40 mg EC Tab PO SCH (08:52)
--- NOTE | 2017-03-15 11:35 | CP.PCM.PN ---
Subjective - Date & Time of Evaluation Date of Evaluation: 03/15/17 Time of Evaluation: 11:30 - Subjective Subjective: Ms. Carrero was seen and examined at the bedside. She is alert, and oriented in all spheres. He is able to dress herself with minimal assistance. She denies any headache, dizziness, lightheadedness, nausea, or vomiting. She is able to follow simple commands. She further states of having a good appetite. She remains on telesitter for patient safety. There was no untoward events overnight. Objective - Vital Signs/Intake and Output Vital Signs (last 24 hours): Temp Pulse Resp BP Pulse Ox 97.2 F L 94 H 18 142/81 96 03/15/17 08:51 03/15/17 08:52 03/15/17 08:51 03/15/17 08:52 03/15/17 08:51 - Medications Medications: Current Medications Al Hydrox/Mg Hydrox/Simethicone (Maalox Plus 30 Ml) 30 ml PO Q6 PRN PRN Reason: Indigestion / Heartburn Aspirin (Ecotrin) 325 mg PO DAILY [facility] Atorvastatin Calcium (Lipitor) 20 mg PO [facility] Last Admin: 03/14/17 21:07 Dose: 20 mg Ciprofloxacin (Cipro) 250 mg PO Q12 [facility] PRN Reason: Protocol Last Admin: 03/15/17 08:52 Dose: 250 mg Clopidogrel Bisulfate (Plavix) 75 mg PO DAILY [facility] Last Admin: 03/13/17 08:10 Dose: 75 mg Docusate Sodium (Colace) 100 mg PO BID [facility] Last Admin: 03/15/17 08:52 Dose: 100 mg Ferrous Sulfate (Feosol) 325 mg PO DAILY [facility] Last Admin: 03/15/17 08:52 Dose: 325 mg Metoprolol Tartrate (Lopressor) 50 mg PO Q12 [facility] Last Admin: 03/15/17 08:52 Dose: 50 mg Pantoprazole Sodium (Protonix Ec Tab) 40 mg PO DAILY [facility] Last Admin: 03/15/17 08:52 Dose: 40 mg Quetiapine Fumarate (Seroquel) 25 mg PO HS [facility] Last Admin: 03/14/17 21:10 Dose: 25 mg - Constitutional Appears: No Acute Distress - Head Exam Head Exam: NORMAL INSPECTION - Neurological Exam Neurological Exam: Alert, Awake, Oriented x3 Neuro motor strength exam: Left Upper Extremity: 4, Right Upper Extremity: 4, Left Lower Extremity: 4, Right Lower Extremity: 4 Additional comments: Neurological improved from previous examination. Assessment and Plan (1) CVA (cerebral vascular accident) Assessment & Plan: Case discussed with Dr. Issa, continue all current medical, physical, occupational, and speech therapies. There is no new recommendations from neurology. Status: Acute
--- NOTE | 2017-03-15 18:12 | CT ---
PROCEDURE: CT HEAD WITHOUT CONTRAST. HISTORY: hemorrhagic stroke COMPARISON: Unenhanced head CT 03/12/2017, unenhanced brain MRI 03/13/2017. TECHNIQUE: Axial computed tomography images were obtained through the head/brain without intravenous contrast. Radiation dose: Total exam DLP = 866.10 mGy-cm. This CT exam was performed using one or more of the following dose reduction techniques: Automated exposure control, adjustment of the mA and/or kV according to patient size, and/or use of iterative reconstruction technique. FINDINGS: HEMORRHAGE: No intracranial hemorrhage. BRAIN: An infarct in evolution is appreciate the right temporooccipital distribution once again with trace petechial hemorrhage identified medially, previously confirmed in prior MRI 03/13/2017. No expansion of the infarction pattern is appreciated this time with a chronic lobar infarction again identified in the right frontal lobe. A chronic lacune is seen at the left caudate head and possibly the bilateral thalami once again. Lucency seen at the mid to upper bilateral basal ganglia, thalami and midbrain are again seen, unchanged Age related neuro degenerative changes are reiterated and remain mild. VENTRICLES: Unremarkable. No hydrocephalus. CALVARIUM: Unremarkable. PARANASAL SINUSES: Unremarkable as visualized. No significant inflammatory changes. MASTOID AIR CELLS: Unremarkable as visualized. No inflammatory changes. OTHER FINDINGS: None. IMPRESSION: 1. Stable late subacute or early chronic infarct right parieto-occipital distribution which trace petechial hemorrhage again evident medially at the posterior distribution of the infarct. No interval expansion of infarcted territory evident at this time. 2. Persistent lucency at the bilateral basal ganglia, thalami and upper brainstem. 3. Small chronic lobar infarction right frontal lobe again evident.
[2017-03-16] MEDS: Pantoprazole 40 mg EC Tab PO SCH (09:11)
--- NOTE | 2017-03-16 12:50 | CP.PCM.PN ---
Subjective - Date & Time of Evaluation Date of Evaluation: 03/16/17 Time of Evaluation: 12:44 - Subjective Subjective: Ms. Carrero was seen and examined at the bedside. She is alert, oriented to place and person except time (2015). She denies any headache, blurred vision, dizziness, lightheadedness, numbness, nausea, or vomiting. She is able to follow simple commands. Repeat CT of the head showed stable late subacute or early chronic infarct right parieto-occipital distribution which trace petechial hemorrhage again evident medially at the posterior distribution of the infarct. No interval expansion of the infarcted territory. Persistent lucency at the bilateral basal gangli, thalami, and upper brain stem. There is small chronic lobar infarction right frontal lobe.She remains with telesitter for patient safety. There was no untoward events overnight. Objective - Vital Signs/Intake and Output Vital Signs (last 24 hours): Temp Pulse Resp BP Pulse Ox 97.7 F 83 18 136/67 94 L 03/16/17 07:41 03/16/17 09:10 03/16/17 07:41 03/16/17 09:10 03/16/17 07:41 - Medications Medications: Current Medications Al Hydrox/Mg Hydrox/Simethicone (Maalox Plus 30 Ml) 30 ml PO Q6 PRN PRN Reason: Indigestion / Heartburn Aspirin (Ecotrin) 325 mg PO DAILY [facility] Atorvastatin Calcium (Lipitor) 20 mg PO HS [facility] Last Admin: 03/15/17 21:25 Dose: 20 mg Ciprofloxacin (Cipro) 250 mg PO Q12 [facility] PRN Reason: Protocol Last Admin: 03/16/17 09:10 Dose: 250 mg Clopidogrel Bisulfate (Plavix) 75 mg PO DAILY [facility] Last Admin: 03/13/17 08:10 Dose: 75 mg Docusate Sodium (Colace) 100 mg PO BID [facility] Last Admin: 03/16/17 09:10 Dose: 100 mg Ferrous Sulfate (Feosol) 325 mg PO DAILY [facility] Last Admin: 03/16/17 09:10 Dose: 325 mg Metoprolol Tartrate (Lopressor) 50 mg PO Q12 [facility] Last Admin: 03/16/17 09:10 Dose: 50 mg Pantoprazole Sodium (Protonix Ec Tab) 40 mg PO DAILY [facility] Last Admin: 03/16/17 09:11 Dose: 40 mg Quetiapine Fumarate (Seroquel) 25 mg PO HS [facility] Last Admin: 03/15/17 21:25 Dose: 25 mg - Constitutional Appears: No Acute Distress - Head Exam Head Exam: NORMAL INSPECTION - Neurological Exam Neurological Exam: Alert, Awake Neuro motor strength exam: Left Upper Extremity: 5, Right Upper Extremity: 5, Left Lower Extremity: 4, Right Lower Extremity: 4 Additional comments: Neurological unchanged from previous examination. Assessment and Plan (1) CVA (cerebral vascular accident) Assessment & Plan: Case discussed with Dr. Issa, continue all current medical, physical, occupational, and speech therapies. Recommend to hold any anti-platelet at this time. Status: Acute
--- NOTE | 2017-03-16 13:24 | CP.PCM.PN ---
Subjective - Date & Time of Evaluation Date of Evaluation: 03/16/17 Time of Evaluation: 10:00 - Subjective Subjective: Patient was seen during physical therapy. Reports that she is doing well. No complaints by patient. No acute events as per nursing staff. HD stable, afebrile , No calf tenderness, no apparent distress. Objective - Vital Signs/Intake and Output Vital Signs (last 24 hours): Temp Pulse Resp BP Pulse Ox 97.7 F 83 18 136/67 94 L 03/16/17 07:41 03/16/17 09:10 03/16/17 07:41 03/16/17 09:10 03/16/17 07:41 - Medications Medications: Current Medications Al Hydrox/Mg Hydrox/Simethicone (Maalox Plus 30 Ml) 30 ml PO Q6 PRN PRN Reason: Indigestion / Heartburn Aspirin (Ecotrin) 325 mg PO DAILY [facility] Atorvastatin Calcium (Lipitor) 20 mg PO HS [facility] Last Admin: 03/15/17 21:25 Dose: 20 mg Ciprofloxacin (Cipro) 250 mg PO Q12 [facility] PRN Reason: Protocol Last Admin: 03/16/17 09:10 Dose: 250 mg Clopidogrel Bisulfate (Plavix) 75 mg PO DAILY [facility] Last Admin: 03/13/17 08:10 Dose: 75 mg Docusate Sodium (Colace) 100 mg PO BID [facility] Last Admin: 03/16/17 09:10 Dose: 100 mg Ferrous Sulfate (Feosol) 325 mg PO DAILY [facility] Last Admin: 03/16/17 09:10 Dose: 325 mg Metoprolol Tartrate (Lopressor) 50 mg PO Q12 [facility] Last Admin: 03/16/17 09:10 Dose: 50 mg Pantoprazole Sodium (Protonix Ec Tab) 40 mg PO DAILY [facility] Last Admin: 03/16/17 09:11 Dose: 40 mg Quetiapine Fumarate (Seroquel) 25 mg PO HS [facility] Last Admin: 03/15/17 21:25 Dose: 25 mg - Additional Findings Additional findings: Constitutional- cooperative, awake, alert. Head- NCAT, PERRL Eye- PERRL, normal accommodation ENT- normal exam, MMM. Neck- normal inspection, supple, no JVD Respiratory- CTAB, no wheezes rales rhonchi Cardiovascular- RRR, +S1, +S2 no MRG GI/Abdominal- normal bowel sounds, soft Skin- warm, dry Extremities Exam- normal capillary refill, normal inspection Neurological Exam- alert, oriented Psych- normal mood, normal affect Assessment and Plan - Assessment and Plan (Free Text) Plan: This is an 81 year old female with a past medical hx of essential hypertension, hypercholesterolemia, osteoporosis, dementia, atrial fibrillation, off of anticoagulation other than aspirin and plavix due to history of recurrent falls , with recent concern for GI bleed however w/ negative colonoscopy. The patient is a resident of the [facility]. She has history of advanced dementia and there is limited history available from her. 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 The patient has no complaints upon admission and says that she feels well. Denies cp/sob/f/c/n/v/d. 1) Right PICA CVA - Admit to [facility] - Physiatry consultation w/ Dr. Strauss - Start PT/OT/ST - Hold ASA/Plavix as per Dr. Issa. - Restart further low dose anticoagulation on 03/23/2016 if medically stable and has strict fall precautions per neuro - Neuro consult with Dr. Issa appreciated and followed: MRI and if neg, EEG. 2) Atrial fibrillation - Off of full anticoagulation due to recurrent falls - Hold ASA/plavix as above - Lopressor 50 mg po q 12 hours for rate control - Was seen at [facility] for cardiology consultation w/ Dr. Kirby 3) Essential hypertension - Continue Lopressor - May need to add additional medications if uncontrolled 4) Hypercholesterolemia - Continue Lipitor 20 mg po HS 5) Hx UTI dx at [facility] - Completing course of Cipro today 03/16/2017 6) Advanced dementia - Continue Aricept - Fall precautions 7) DVT prophylaxis - Plavix/ASA only as above - ANDRES hose/stockings Disposition: [facility] be [facility] upon completion of her treatment.
--- NOTE | 2017-03-16 16:33 | CP.PCM.PN ---
Subjective - Date & Time of Evaluation Date of Evaluation: 03/16/17 Time of Evaluation: 16:32 - Subjective Subjective: Patient seen in room much more independent. benefitting from therapies denies sob/cp or joint pain continue current care ELOS 03/22/17 Objective - Vital Signs/Intake and Output Vital Signs (last 24 hours): Temp Pulse Resp BP Pulse Ox 97.7 F 78 18 136/67 94 L 03/16/17 07:41 03/16/17 13:51 03/16/17 07:41 03/16/17 09:10 03/16/17 07:41 - Medications Medications: Current Medications Al Hydrox/Mg Hydrox/Simethicone (Maalox Plus 30 Ml) 30 ml PO Q6 PRN PRN Reason: Indigestion / Heartburn Aspirin (Ecotrin) 325 mg PO DAILY [facility] Atorvastatin Calcium (Lipitor) 20 mg PO HS [facility] Last Admin: 03/15/17 21:25 Dose: 20 mg Ciprofloxacin (Cipro) 250 mg PO Q12 [facility] PRN Reason: Protocol Stop: 03/16/17 23:00 Last Admin: 03/16/17 09:10 Dose: 250 mg Clopidogrel Bisulfate (Plavix) 75 mg PO DAILY [facility] Last Admin: 03/13/17 08:10 Dose: 75 mg Docusate Sodium (Colace) 100 mg PO BID [facility] Last Admin: 03/16/17 09:10 Dose: 100 mg Ferrous Sulfate (Feosol) 325 mg PO DAILY [facility] Last Admin: 03/16/17 09:10 Dose: 325 mg Metoprolol Tartrate (Lopressor) 50 mg PO Q12 [facility] Last Admin: 03/16/17 09:10 Dose: 50 mg Pantoprazole Sodium (Protonix Ec Tab) 40 mg PO DAILY [facility] Last Admin: 03/16/17 09:11 Dose: 40 mg Quetiapine Fumarate (Seroquel) 25 mg PO HS [facility] Last Admin: 03/15/17 21:25 Dose: 25 mg
[2017-03-17 08:22] LABS: MEAN CELL VOLUME 79.9 fl (81.0-99.0); MEAN CORPUSCULAR HEMOGLOBIN 25.7 pg (27.0-31.0); MEAN CORPUSCULAR HGB CONC 32.1 g/dL (33.0-37.0); RBC 5.04 Mil/uL (3.80-5.20); RED CELL DISTRIBUTION WIDTH 21.5 % (11.5-14.5); WHITE BLOOD COUNT 5.8 K/uL (4.8-10.8)
[2017-03-17 08:37] LABS: BLOOD UREA NITROGEN 17 mg/dl (7-17); CALCIUM 8.7 mg/dL (8.4-10.2); GFR AFRICAN-AMERICAN > 60; GFR NON-AFRICAN AMERICAN 53
[2017-03-17] MEDS: Pantoprazole 40 mg EC Tab PO SCH (08:38)
[2017-03-18] MEDS: Pantoprazole 40 mg EC Tab PO SCH (08:46)
[2017-03-19] MEDS: Pantoprazole 40 mg EC Tab PO SCH (08:22)
--- NOTE | 2017-03-19 10:51 | CP.PCM.PN ---
Subjective - Date & Time of Evaluation Date of Evaluation: 03/19/17 Time of Evaluation: 10:49 - Subjective Subjective: Ms. Carrero was seen and examined at the bedside. She is alert, oriented to person, but not to place and time (2016). She denies any headache, dizziness, lightheadedness, nausea, or vomiting. She states of feeling sleepy, but able to follow simple commands. There was no untoward events overnight. Objective - Vital Signs/Intake and Output Vital Signs (last 24 hours): Temp Pulse Resp BP Pulse Ox 97.3 F L 84 20 123/48 L 98 03/19/17 08:05 03/19/17 08:22 03/19/17 08:05 03/19/17 08:22 03/19/17 08:05 - Medications Medications: Current Medications Al Hydrox/Mg Hydrox/Simethicone (Maalox Plus 30 Ml) 30 ml PO Q6 PRN PRN Reason: Indigestion / Heartburn Aspirin (Ecotrin) 325 mg PO DAILY [facility] Atorvastatin Calcium (Lipitor) 20 mg PO HS [facility] Last Admin: 03/18/17 21:09 Dose: 20 mg Clopidogrel Bisulfate (Plavix) 75 mg PO DAILY [facility] Last Admin: 03/13/17 08:10 Dose: 75 mg Docusate Sodium (Colace) 100 mg PO BID [facility] Last Admin: 03/19/17 08:23 Dose: 100 mg Ferrous Sulfate (Feosol) 325 mg PO DAILY [facility] Last Admin: 03/19/17 08:22 Dose: 325 mg Metoprolol Tartrate (Lopressor) 50 mg PO Q12 [facility] Last Admin: 03/19/17 08:22 Dose: 50 mg Pantoprazole Sodium (Protonix Ec Tab) 40 mg PO DAILY [facility] Last Admin: 03/19/17 08:22 Dose: 40 mg Quetiapine Fumarate (Seroquel) 25 mg PO HS [facility] Last Admin: 03/18/17 21:09 Dose: 25 mg - Labs Labs: 03/17/17 08:03 03/17/17 08:03 - Constitutional Appears: No Acute Distress - Head Exam Head Exam: NORMAL INSPECTION - Neurological Exam Neurological Exam: Alert, Awake Neuro motor strength exam: Left Upper Extremity: 5, Right Upper Extremity: 5, Left Lower Extremity: 4, Right Lower Extremity: 4 Additional comments: Neurological unchanged from previous examination. Assessment and Plan (1) CVA (cerebral vascular accident) Assessment & Plan: Case discussed with Dr. Issa, continue all current medical, physical, occupational, and speech therapies. Recommend repeat CT of the head without contrast to evaluate the ischemic conversion to hemorrhagic. Status: Acute
--- NOTE | 2017-03-19 11:18 | CP.PCM.PN ---
Subjective - Date & Time of Evaluation Date of Evaluation: 03/19/17 Time of Evaluation: 11:17 - Subjective Subjective: tolerating PT well no complaints hd stable nad no cp sob calf tenderness Objective - Vital Signs/Intake and Output Vital Signs (last 24 hours): Temp Pulse Resp BP Pulse Ox 97.3 F L 84 20 123/48 L 98 03/19/17 08:05 03/19/17 08:22 03/19/17 08:05 03/19/17 08:22 03/19/17 08:05 Constitutional- cooperative, awake, alert. Head- NCAT, PERRL Eye- PERRL, normal accommodation ENT- normal exam, MMM. Neck- normal inspection, supple, no JVD Respiratory- CTAB, no wheezes rales rhonchi Cardiovascular- RRR, +S1, +S2 no MRG GI/Abdominal- normal bowel sounds, soft Skin- warm, dry Extremities Exam- normal capillary refill, normal inspection Neurological Exam- alert, oriented Psych- normal mood, normal affect - Medications Medications: Current Medications Al Hydrox/Mg Hydrox/Simethicone (Maalox Plus 30 Ml) 30 ml PO Q6 PRN PRN Reason: Indigestion / Heartburn Aspirin (Ecotrin) 325 mg PO DAILY [facility] Atorvastatin Calcium (Lipitor) 20 mg PO HS [facility] Last Admin: 03/18/17 21:09 Dose: 20 mg Clopidogrel Bisulfate (Plavix) 75 mg PO DAILY [facility] Last Admin: 03/13/17 08:10 Dose: 75 mg Docusate Sodium (Colace) 100 mg PO BID [facility] Last Admin: 03/19/17 08:23 Dose: 100 mg Ferrous Sulfate (Feosol) 325 mg PO DAILY [facility] Last Admin: 03/19/17 08:22 Dose: 325 mg Metoprolol Tartrate (Lopressor) 50 mg PO Q12 [facility] Last Admin: 03/19/17 08:22 Dose: 50 mg Pantoprazole Sodium (Protonix Ec Tab) 40 mg PO DAILY [facility] Last Admin: 03/19/17 08:22 Dose: 40 mg Quetiapine Fumarate (Seroquel) 25 mg PO HS [facility] Last Admin: 03/18/17 21:09 Dose: 25 mg - Labs Labs: 03/17/17 08:03 03/17/17 08:03 Assessment and Plan - Assessment and Plan (Free Text) Plan: This is an 81 year old female with a past medical hx of essential hypertension, hypercholesterolemia, osteoporosis, dementia, atrial fibrillation, off of anticoagulation other than aspirin and plavix due to history of recurrent falls , with recent concern for GI bleed however w/ negative colonoscopy. The patient is a resident of the [facility]. She has history of advanced dementia and there is limited history available from her. 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 The patient has no complaints upon admission and says that she feels well. Denies cp/sob/f/c/n/v/d. 1) Right PICA CVA - Admit to [facility] - Physiatry consultation w/ Dr. Strauss - Start PT/OT/ST - Continue ASA/Plavix - Restart further low dose anticoagulation on 03/23/2016 if medically stable and has strict fall precautions per neuro - Neuro consult with Dr. Issa appreciated and followed: MRI and if neg, EEG. will continue ASA Repeat CT head today for hemorrhagic conversion 2) Atrial fibrillation - Off of full anticoagulation due to recurrent falls - Cont ASA/Plavix - Lopressor 50 mg po q 12 hours for rate control - Was seen at [facility] for cardiology consultation w/ Dr. Kirby 3) Essential hypertension - Continue Lopressor - May need to add additional medications if uncontrolled 4) Hypercholesterolemia - Continue Lipitor 20 mg po HS 5) Hx UTI dx at [facility] - Continue Cipro 250 mg po q 12 hours - Cipro to be completed on 03/16/2017 6) Advanced dementia - Continue Aricept - Fall precautions 7) DVT prophylaxis - Plavix/ASA only as above - ANDRES hose/stockings Disposition: To be discharged back to the [facility] upon completion of her treatment.
--- NOTE | 2017-03-19 12:58 | CT ---
PROCEDURE: CT HEAD WITHOUT CONTRAST. HISTORY: follow up previous [facility] COMPARISON: 03/15/2017. Under hemorrhagic 03/13/2017 MRI brain. Summary of findings on the comparison examination:Large subacute infarction with hemorrhagic transformation in the right occipital lobe involving the SH[employer]LE [employer]LE [employer] territory. TECHNIQUE: Axial computed tomography images were obtained through the head/brain without intravenous contrast. Radiation dose: Total exam DLP = 1079.74 mGy-cm. This CT exam was performed using one or more of the following dose reduction techniques: Automated exposure control, adjustment of the mA and/or kV according to patient size, and/or use of iterative reconstruction technique. FINDINGS: HEMORRHAGE: No evidence of new/ acute hemorrhage. BRAIN: Involving right occipital infarct. Evidence of old right frontal cortical infarction. VENTRICLES: Unremarkable. No hydrocephalus. CALVARIUM: Unremarkable. PARANASAL SINUSES: Unremarkable as visualized. No significant inflammatory changes. MASTOID AIR CELLS: Unremarkable as visualized. No inflammatory changes. OTHER FINDINGS: None. IMPRESSION: No new areas of cortical infarction. Evolving acute nonhemorrhagic infarct right occipital region.
[2017-03-20] MEDS: Pantoprazole 40 mg EC Tab PO SCH (08:58)
--- NOTE | 2017-03-20 13:05 | PSY.TMCNF ---
Nursing - Vital Signs Vital Signs (Last 8 hours): Vital Signs 03/20/17 03/20/17 03/20/17 08:14 08:57 09:00 Temperature 98.2 F 98.2 F Pulse Rate 87 87 87 Respiratory 22 22 Rate Blood Pressure 154/88 H 154/88 H 154/88 H O2 Sat by Pulse 96 Oximetry Pain: 0 - Precautions: Precautions: Fall Prevention - Medications/Other Issues Comment: Pt at moderate nutritional risk. goal: 1. Pt to consume 75-100% of meals(not met, continue). Follow-up due on 03/22/2017 - Consults Comment: Dr. Christian, Dr. Gómez - Toileting Toileting: Supervision - Bladder Management Bladder Pattern: Normal Voiding Method: Toilet Bladder Management: Supervision Frequency of Accidents: 0 - Bowel Management Bowel Pattern: Normal Bowel Management: Supervision Frequency of Accidents: 0 - Transfers Transfers: Supervision - ADL's ADL's: Supervision - Patient/Family Teaching Comments: Care post CVA and safety precautions - Goals/Time Frame Comments: Per multidisciplinary care plan and goals - Provider Provider: Kisha Sanchez RN Physical Therapy - Bed Mobility Bed Mobility: Supervision, Verbal Cues - Transfers Wheelchair to Mat: Verbal Cues, Contact Guard Sit to Stand: Verbal Cues, Contact Guard - Ambulation Level of Assistance: Verbal Cues, Contact Guard Distance (ft.): 125 Assistive Devices: Rolling Walker - Stair Negotiation Stairs: Level of Assistance: Contact Guard Number of Stairs: 3 Handrails: Bilateral Stairs: Assistive Devices: Left Handrail, Right Handrail - Standing Balance Static Stand: Supervision Dynamic Stand: Contact Guard Assist, Minimal Assistance - Pain Pain (assessed during therapy session): 0 - Insight/Carryover Insight/Carryover: Fair - Patient/Family Education Comment: Patient benefits from consistent verbal cues for safety awareness and pt demos poor cognition. - Assessment/Plan Assessment: Patient is 81 yo female who presents to acute rehab at [facility] s/p acute CVA. Patient was residing in a retirement setting and was modified I at baseline. Patient is making steady gains in therapy. She requires CS/CGA with transfers,mobility and self care using AE. Barriers to her progress include poor dynamic standing balance , unsteadiness on feet, generalized weakness, inattention to L side, poor act tolerance and poor safety awareness due to cog defecits . Pt benefits from consistent verbal cues for safety due to poor carryover. Cont OT services 5-6x/week to return pt to her PLOF. Reccommending 24 hour supervision due to cognitive defecits and poor safety awareness. - Goals Timeframe: 7 days Goals: supervision for feeding/grooming, transfers , mobility, and self care using AE as needed. - Provider Therapist: valery License Number: [id number] Occupational Therapy - Arousal/Attention/Orientation Patient Orientation: Person - ADL/IADL Self Feeding: Set-up Help Grooming: Set-up Help Bathing-Upper Extremity: Supervision, Verbal Cues Bathing-Lower Extremity: Verbal Cues, Set-up Help, Contact Guard Dressing-Upper Extremity: Supervision Dressing-Lower Extremity: Verbal Cues, Set-up Help, Contact Guard Homemaking: Not Applicable - Sitting Balance Static Sitting: Independent without upper extremity support Dynamic Sitting: Reaches across midline, Reaches out of base of support, Reaches within base of support, Requires supervision - Transfers Wheelchair to Bed Transfers: Contact Guard Toilet Transfers: Supervision, Verbal Cues, Contact Guard Tub Transfers: Contact Guard Comment: rw used - Wheelchair Management Level of Assistance: Verbal Cues, Minimal Assistance - Upper Extremity Status Right Upper Extremity Comment: WFL Left Upper Extremity Comment: WFL - Pain Pain (assessed during therapy session): 0 - Insight/Carryover Insight/Carryover: Fair - Patient/Family Education Comment: Patient benefits from consistent verbal cues for safety awareness and pt demos poor cognition. - Assessment/Plan Assessment: Patient is 81 yo female who presents to acute rehab at [facility] s/p acute CVA. Patient was residing in a retirement setting and was modified I at baseline. Patient is making steady gains in therapy. She requires CS/CGA with transfers,mobility and self care using AE. Barriers to her progress include poor dynamic standing balance , unsteadiness on feet, generalized weakness, inattention to L side, poor act tolerance and poor safety awareness due to cog defecits . Pt benefits from consistent verbal cues for safety due to poor carryover. Cont OT services 5-6x/week to return pt to her PLOF. Reccommending 24 hour supervision due to cognitive defecits and poor safety awareness. - Goals Timeframe: 7 days Goals: supervision for feeding/grooming, transfers , mobility, and self care using AE as needed. - Provider Therapist: Stacie Shade, OTR/L License Number: [id number] Speech Therapy - Plan Assessment: Patient is 81 yo female who presents to acute rehab at [facility] acute CVA. Patient was residing in a retirement setting and was modified I at baseline. Patient is making steady gains in therapy. She requires CS/CGA with transfers,mobility and self care using AE. Barriers to her progress include poor dynamic standing balance , unsteadiness on feet, generalized weakness, inattention to L side, poor act tolerance and poor safety awareness due to cog defecits . Pt benefits from consistent verbal cues for safety due to poor carryover. Cont OT services 5-6x/week to return pt to her PLOF. Reccommending 24 hour supervision due to cognitive defecits and poor safety awareness. Recreational Therapy - Participation Participation: Participates in Individual and/or Group Sessions - Activities Leisure Activities: Cards and Games - Socialization Level of Socialization: Initiates/interacts freely with care givers and peer - Diversional Time Diversional Time: television, movies - Assessment Assessment/Plan: Patient is 81 yo female who presents to acute rehab at [facility] acute CVA. Patient was residing in a retirement setting and was modified I at baseline. Patient is making steady gains in therapy. She requires CS/CGA with transfers,mobility and self care using AE. Barriers to her progress include poor dynamic standing balance , unsteadiness on feet, generalized weakness, inattention to L side, poor act tolerance and poor safety awareness due to cog defecits . Pt benefits from consistent verbal cues for safety due to poor carryover. Cont OT services 5-6x/week to return pt to her PLOF. Reccommending 24 hour supervision due to cognitive defecits and poor safety awareness. - Provider Therapist: Anju Huntley, SPECIAL DELIVERY CLERK #[id number] Nutrition - Current Diet Current Diet/ Supplement/ Feedings: Heart healthy soft - Appetite Percent Meal Consumed: 75-100% - Comments Comments: Care post CVA and safety precautions - Assessment/Goals/Time Frame Assessment/Goals/Time Frame: Pt at moderate nutritional risk. goal: 1. Pt to consume 75-100% of meals(not met, continue). Follow-up due on 03/22/2017 - Provider Provider: Vani Beltrán RD Case Management - Psychosocial Assessment Support Systems: Yanira Yee (daughter)- [phone] Psychological Interventions/Needs: Patient is alert with confusion and forgetfulness Discharge Concerns: Patient currently requiring CG for bed mobility, transfers and ambulation. Patient will likely require higher level of care at assisted living due to current deficits Patient/Family Meeting: CM met with patient and rehab team Intervention/Goal/Outcome:: 1. Goal: 24 hour supervision. 2. Plan: D/C back to [facility]- possible reassessment for appropriate level of care. 3. Tentative discharge date: 03/22/2017. 4. continued emotional support. - Discharge Plan Discharge Plan: detention senior living Services: LTC at [facility] - Provider Provider: MERCEDES Cedeno, ANGELICA License Number: [id number] Rehabilitation Plan - Discharge Plan Estimated Date of Discharge: 03/22/17 Discharge to: Senior Care Facility
--- NOTE | 2017-03-20 13:27 | CP.PCM.PN ---
Subjective - Date & Time of Evaluation Date of Evaluation: 03/20/17 Time of Evaluation: 13:26 - Subjective Subjective: Patient seen and denies sob/cp set for d/c to [facility] 03/22/17 ambulating 150' no pain Objective - Vital Signs/Intake and Output Vital Signs (last 24 hours): Temp Pulse Resp BP Pulse Ox 98.2 F 87 22 154/88 H 96 03/20/17 09:00 03/20/17 09:00 03/20/17 09:00 03/20/17 09:00 03/20/17 08:14 - Medications Medications: Current Medications Al Hydrox/Mg Hydrox/Simethicone (Maalox Plus 30 Ml) 30 ml PO Q6 PRN PRN Reason: Indigestion / Heartburn Aspirin (Ecotrin) 325 mg PO DAILY [facility] Atorvastatin Calcium (Lipitor) 20 mg PO HS [facility] Last Admin: 03/19/17 21:20 Dose: 20 mg Clopidogrel Bisulfate (Plavix) 75 mg PO DAILY [facility] Last Admin: 03/13/17 08:10 Dose: 75 mg Docusate Sodium (Colace) 100 mg PO BID [facility] Last Admin: 03/20/17 08:58 Dose: 100 mg Ferrous Sulfate (Feosol) 325 mg PO DAILY [facility] Last Admin: 03/20/17 08:58 Dose: 325 mg Metoprolol Tartrate (Lopressor) 50 mg PO Q12 [facility] Last Admin: 03/20/17 08:57 Dose: 50 mg Pantoprazole Sodium (Protonix Ec Tab) 40 mg PO DAILY [facility] Last Admin: 03/20/17 08:58 Dose: 40 mg Quetiapine Fumarate (Seroquel) 25 mg PO HS [facility] Last Admin: 03/19/17 21:19 Dose: 25 mg - Labs Labs: 03/17/17 08:03 03/17/17 08:03
[2017-03-21] MEDS: Pantoprazole 40 mg EC Tab PO SCH (08:09)
--- NOTE | 2017-03-21 10:27 | CP.PCM.PN ---
Subjective - Date & Time of Evaluation Date of Evaluation: 03/21/17 Time of Evaluation: 10:24 - Subjective Subjective: Ms. Carrero was seen and examined at the bedside. She is alert, oriented. She is able to answer simple questions and follow simple commands. She denies any headache, dizziness, blurred vision, numbness, nausea, or vomiting. She is able to participate during her therapy session. CT of the head showed no evidence of acute cortical infarction. Stable small extra axial hemorrhage adjacent to an old right occipital infarct. She remains on telesitter for patient safety. There was no untoward events overnight. Objective - Vital Signs/Intake and Output Vital Signs (last 24 hours): Temp Pulse Resp BP Pulse Ox 97.1 F L 94 H 22 150/103 H 97 03/21/17 08:37 03/21/17 08:37 03/21/17 08:37 03/21/17 08:37 03/21/17 08:37 - Medications Medications: Current Medications Al Hydrox/Mg Hydrox/Simethicone (Maalox Plus 30 Ml) 30 ml PO Q6 PRN PRN Reason: Indigestion / Heartburn Aspirin (Ecotrin) 325 mg PO DAILY [facility] Atorvastatin Calcium (Lipitor) 20 mg PO HS [facility] Last Admin: 03/20/17 21:44 Dose: 20 mg Clopidogrel Bisulfate (Plavix) 75 mg PO DAILY [facility] Last Admin: 03/13/17 08:10 Dose: 75 mg Docusate Sodium (Colace) 100 mg PO BID [facility] Last Admin: 03/21/17 08:09 Dose: 100 mg Ferrous Sulfate (Feosol) 325 mg PO DAILY [facility] Last Admin: 03/21/17 08:10 Dose: 325 mg Metoprolol Tartrate (Lopressor) 50 mg PO Q12 [facility] Last Admin: 03/21/17 08:10 Dose: 50 mg Pantoprazole Sodium (Protonix Ec Tab) 40 mg PO DAILY [facility] Last Admin: 03/21/17 08:09 Dose: 40 mg Quetiapine Fumarate (Seroquel) 25 mg PO HS [facility] Last Admin: 03/20/17 21:48 Dose: 25 mg - Labs Labs: 03/17/17 08:03 03/17/17 08:03 - Constitutional Appears: No Acute Distress - Head Exam Head Exam: NORMAL INSPECTION - Neurological Exam Neurological Exam: Alert, Awake, Oriented x3 Neuro motor strength exam: Left Upper Extremity: 5, Right Upper Extremity: 5, Left Lower Extremity: 4, Right Lower Extremity: 4 Additional comments: Neurological improved from previous examination. Assessment and Plan (1) CVA (cerebral vascular accident) Assessment & Plan: Case discussed with Dr. Christian, continue all current medical, physical, occupational, and speech therapies. Recommend to re-start aspirin 81 mg PO daily. Status: Acute
--- NOTE | 2017-03-21 16:05 | CP.PCM.PN ---
Subjective - Date & Time of Evaluation Date of Evaluation: 03/21/17 Time of Evaluation: 16:04 - Subjective Subjective: Patient seen at nurse's station. In good spirits denies sob/cp no headaches set for d/c to [facility] 03/22/17 continue current care, has been an excellent acute rehab candidate Objective - Vital Signs/Intake and Output Vital Signs (last 24 hours): Temp Pulse Resp BP Pulse Ox 97.1 F L 94 H 22 150/103 H 97 03/21/17 08:37 03/21/17 08:37 03/21/17 08:37 03/21/17 08:37 03/21/17 08:37 - Medications Medications: Current Medications Al Hydrox/Mg Hydrox/Simethicone (Maalox Plus 30 Ml) 30 ml PO Q6 PRN PRN Reason: Indigestion / Heartburn Aspirin (Ecotrin) 81 mg PO DAILY [facility] Last Admin: 03/21/17 12:32 Dose: 81 mg Atorvastatin Calcium (Lipitor) 20 mg PO HS [facility] Last Admin: 03/20/17 21:44 Dose: 20 mg Docusate Sodium (Colace) 100 mg PO BID [facility] Last Admin: 03/21/17 08:09 Dose: 100 mg Ferrous Sulfate (Feosol) 325 mg PO DAILY [facility] Last Admin: 03/21/17 08:10 Dose: 325 mg Metoprolol Tartrate (Lopressor) 50 mg PO Q12 [facility] Last Admin: 03/21/17 08:10 Dose: 50 mg Pantoprazole Sodium (Protonix Ec Tab) 40 mg PO DAILY [facility] Last Admin: 03/21/17 08:09 Dose: 40 mg Quetiapine Fumarate (Seroquel) 25 mg PO HS [facility] Last Admin: 03/20/17 21:48 Dose: 25 mg - Labs Labs: 03/17/17 08:03 03/17/17 08:03
[2017-03-21 20:54] VITALS: TEMP 98.2
[2017-03-22] MEDS: Pantoprazole 40 mg EC Tab PO SCH (08:18)
[2017-03-22 08:22] VITALS: BP 169/86; PULSE 98
[2017-03-22 09:07] VITALS: RESP 22; O2SAT 97
--- NOTE | 2017-03-22 10:05 | CP.PCM.PN ---
Subjective - Date & Time of Evaluation Date of Evaluation: 03/22/17 Time of Evaluation: 09:59 - Subjective Subjective: Ms. Carrero was seen and examined at the nurses station. She is alert with episode of confusion to time, but able to verbalize person and place. She denies any headache, blurred vision, dizziness, lightheadedness, nausea, or vomiting. She is able to follow simple commands. She states that she is being discharge today which was confirm by the staff. She remains on telesitter for patiet safety. There was no untoward events overnight. Objective - Vital Signs/Intake and Output Vital Signs (last 24 hours): Temp Pulse Resp BP Pulse Ox 98.2 F 98 H 22 169/86 H 97 03/22/17 09:06 03/22/17 09:06 03/22/17 09:06 03/22/17 09:06 03/22/17 09:06 - Medications Medications: Current Medications Al Hydrox/Mg Hydrox/Simethicone (Maalox Plus 30 Ml) 30 ml PO Q6 PRN PRN Reason: Indigestion / Heartburn Aspirin (Ecotrin) 81 mg PO DAILY [facility] Last Admin: 03/22/17 08:18 Dose: 81 mg Atorvastatin Calcium (Lipitor) 20 mg PO HS [facility] Last Admin: 03/21/17 21:47 Dose: 20 mg Docusate Sodium (Colace) 100 mg PO BID [facility] Last Admin: 03/22/17 08:18 Dose: 100 mg Ferrous Sulfate (Feosol) 325 mg PO DAILY [facility] Last Admin: 03/22/17 08:18 Dose: 325 mg Metoprolol Tartrate (Lopressor) 50 mg PO Q12 [facility] Last Admin: 03/22/17 08:21 Dose: 50 mg Pantoprazole Sodium (Protonix Ec Tab) 40 mg PO DAILY [facility] Last Admin: 03/22/17 08:18 Dose: 40 mg Quetiapine Fumarate (Seroquel) 25 mg PO HS [facility] Last Admin: 03/21/17 21:47 Dose: 25 mg - Labs Labs: 03/17/17 08:03 03/17/17 08:03 - Constitutional Appears: No Acute Distress - Head Exam Head Exam: NORMAL INSPECTION - Neurological Exam Neurological Exam: Alert, Awake Neuro motor strength exam: Left Upper Extremity: 5, Right Upper Extremity: 5, Left Lower Extremity: 5, Right Lower Extremity: 5 Additional comments: Neurological unchanged from previous examination. Assessment and Plan (1) CVA (cerebral vascular accident) Assessment & Plan: Case discussed with Dr. Christian, continue to all medical, physical, occupational therapies. Status: Acute
--- NOTE | 2017-03-22 10:52 | CP.PCM.DIS ---
Provider - Provider Date of Admission: 03/09/17 20:03 Attending physician: Dao Rivera DO Consults: Dr Dalia Issa Time Spent in preparation of Discharge (in minutes): 25 Diagnosis - Discharge Diagnosis (1) CVA (cerebral vascular accident) Status: Acute Comment: continue ASA and statin. continue PT/OT/ST in [place] (2) Atrial fibrillation Status: Chronic Comment: rate controlled. continue low dose antiplatelets. continue ASA 81mg daily. continue hold on Plavix as per neuro. continue Lopressor 50mg PO BID (3) HTN (hypertension) Status: Chronic Comment: BP slightly elevated today. on Lopressor 50mg PO BID (4) HLD (hyperlipidemia) Status: Chronic Comment: continue Lipitor 20mg PO HS (5) Dementia Status: Chronic Comment: continue Aricept Hospital Course - Lab Results Lab Results: Most Recent Lab Values WBC 5.8 K/uL (4.8-10.8) 03/17/17 08:03 RBC 5.04 Mil/uL (3.80-5.20) 03/17/17 08:03 Hgb 13.0 g/dL (12.0-16.0) 03/17/17 08:03 Hct 40.3 % (34.0-47.0) 03/17/17 08:03 MCV 79.9 fl (81.0-99.0) L 03/17/17 08:03 MCH 25.7 pg (27.0-31.0) L 03/17/17 08:03 MCHC 32.1 g/dL (33.0-37.0) L 03/17/17 08:03 RDW 21.5 % (11.5-14.5) H 03/17/17 08:03 Plt Count 176 K/uL (130-400) 03/17/17 08:03 Sodium 142 mmol/l (132-148) 03/17/17 08:03 Potassium 4.0 MMOL/L (3.6-5.0) 03/17/17 08:03 Chloride 102 mmol/L (98-107) 03/17/17 08:03 Carbon Dioxide 32 mmol/L (22-30) H 03/17/17 08:03 Anion Gap 12 (10-20) 03/17/17 08:03 BUN 17 mg/dl (7-17) 03/17/17 08:03 Creatinine 1.0 mg/dl (0.7-1.2) 03/17/17 08:03 Est GFR ( Amer) > 60 03/17/17 08:03 Est GFR (Non-Af Amer) 53 03/17/17 08:03 Random Glucose 90 mg/dL (65-105) 03/17/17 08:03 Calcium 8.7 mg/dL (8.4-10.2) 03/17/17 08:03 - Hospital Course Hospital Course: 81 yo female with history of HTN, HLD, AFib, Recurrent Falls, recent GI bleed and Advanced Dementia was admitted at 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 Patient was put on low dose ASA and placed on fall precaution. She was transferred to [facility] on 03/09/17 for further management and continuation of PT. She did well and now is ready to get back to her place in [facility] where she would continue her PT. Discharge Exam - Head Exam Head Exam: NORMAL INSPECTION - Eye Exam Eye Exam: absent: Scleral icterus - ENT Exam ENT Exam: Mucous Membranes Moist - Respiratory Exam Respiratory Exam: NORMAL BREATHING PATTERN. absent: Wheezes, Respiratory Distress - Cardiovascular Exam Cardiovascular Exam: Irregular Rhythm - GI/Abdominal Exam GI & Abdominal Exam: Soft. absent: Tenderness - Rectal Exam Rectal Exam: Deferred - Neurological Exam Neurological exam: Alert - Psychiatric Exam Psychiatric exam: Normal Affect - Skin Skin Exam: Dry, Intact Discharge Plan - Follow Up Plan Condition: GOOD Disposition: HOME/ ROUTINE
== END 2017-03-22 14:30 | DRG 57 ==
PROVIDERS: ADMIT Internal Medicine; ATTEND Internal Medicine
PROC: F08Z1FZ Dressing Techniques Treatment using Assistive, Adaptive, Supportive or Protective Equipment (ICD-10-PCS; principal; 2017-03-09)
PROC: F07Z9FZ Gait Training/Functional Ambulation Treatment using Assistive, Adaptive, Supportive or Protective Equipment (ICD-10-PCS; 2017-03-09)
PROC: F07L6FZ Therapeutic Exercise Treatment of Musculoskeletal System - Lower Back / Lower Extremity using Assistive, Adaptive, Supportive or Protective Equipment (ICD-10-PCS; 2017-03-09)
DX: I69.398 Other sequelae of cerebral infarction (principal); H53.47 Heteronymous bilateral field defects; I48.2 Chronic atrial fibrillation; D64.9 Anemia, unspecified; F03.90 Unspecified dementia, unspecified severity, without behavioral disturbance, psychotic disturbance, mood disturbance, and anxiety; I10 Essential (primary) hypertension; E78.00 Pure hypercholesterolemia, unspecified; M81.0 Age-related osteoporosis without current pathological fracture; Z87.891 Personal history of nicotine dependence; Z96.651 Presence of right artificial knee joint; K63.5 Polyp of colon; K57.90 Diverticulosis of intestine, part unspecified, without perforation or abscess without bleeding; E78.5 Hyperlipidemia, unspecified; R41.0 Disorientation, unspecified